=== PATIENT | female | born 1965 | race American Indian/Alaskan Native ===

== ENCOUNTER 2017-01-08 09:50 | Day surgery (SDC) | payer MEDICARE, MEDICAID ==
[2017-01-07 21:16] LABS: Hematocrit 15.3 % (30.3-42.9); Hemoglobin 4.8 gm/dl (10.1-14.3)
[2017-01-08] MEDS ORDERED: BENADRYL IV NR (10:18)
[2017-01-08] MEDS ORDERED: NACL 0.9% 250ML 250 ML IV ONE (10:18)
[2017-01-08] MEDS ORDERED: FLUSH HEPARIN IV ONE ×2 (10:28→15:05)
[2017-01-08 15:07] VITALS: BP 100/67
== END 2017-01-08 15:30 | disposition home or self-care (01) ==
LOC: OPU 09:50
DX: D64.9 Anemia, unspecified (principal)
CPT/HCPCS: 36415; 36430; 85014; 85018; 86850; 86900; 86901; 86920; 96374; J1642; P9016

== ENCOUNTER 2017-03-27 20:25 | Emergency (ER) | payer MEDICARE ==
[2017-03-27] MEDS ORDERED: D5NS 0.2% 1,000 ML IV SCH (22:00)
== END 2017-03-28 00:20 | disposition left against medical advice (07) ==
LOC: ED 20:25
DX: M79.605 Pain in left leg (principal); M79.604 Pain in right leg; Z53.21 Procedure and treatment not carried out due to patient leaving prior to being seen by health care provider

== ENCOUNTER 2017-03-28 11:24 | Emergency (ER) | payer MEDICARE ==
[2017-03-28 13:05] VITALS: BP 126/71
[2017-03-28] MEDS ORDERED: ULTRAM PO ONE (13:29)
--- NOTE | 2017-03-28 13:30 | Emergency Department Report ---
Entered by GUSTAVO SANTANA, acting as scribe for SHARIF ANDREW NP. Chief Complaint: Sickle Cell Crisis Stated Complaint: SICKLE CELL ANEMIA Time Seen by Provider: 03/28/17 13:11 - HPI History of Present Illness: Pt c/o sickle cell crisis. Notes a lot of PO fluid intake. PMHx of ESRD Positive myalgias. Positive for cough with yellow sputum + Nausea, fever, and chills Negative for vomiting and Negative for chest pain, dizziness, headache, and SOB Pt is currently on peritoneal dialysis. Last time was the 1 day ago. - ROS Review of Systems: All system are negative unless stated in HPI above. - Exam Vital Signs: Vital Signs 03/28/17 13:02 Temperature 98.1 F Pulse Rate 89 Blood Pressure 126/71 O2 Sat by Pulse 99 Oximetry Physical Exam: General: well nourished, well developed, 51 year old male in no acute distress and nontoxic in appearance Eyes: Sclera are pale bilateral Respiratory exam: normal lung sounds bilaterally. No respiratory distress. Congested cough present during exam Cardiovascular Exam: Regular rate, normal rhythm. No systolic murmur, diastolic murmur, rubs, or gallop Musculoskeletal: bilateral legs are not swollen MSE screening note: Focused history and physical exam performed. Due to findings the following was ordered: pt to main ed See above. ED Medical Decision Making - Medical Decision Making Patient screened by provider in triage area. Labs sent in for patient. Patient to be seen by MD on main ED side. ED Disposition for MSE Condition: Stable This documentation as recorded by the scribe,GUSTAVO SANTANA,accurately reflects the service I personally performed and the decisions made by me, SHARIF ANDREW NP.
--- NOTE | 2017-03-28 15:02 | XRay Report ---
CHEST 2 VIEWS INDICATION: Productive cough. COMPARISON: 02/12/2017 FINDINGS: PA and lateral chest radiographs demonstrate normal cardiomediastinal silhouette, right chest port tip about the cavoatrial junction and clear lungs. Bones again somewhat sclerotic diffusely. Left axillary stent partially imaged. Upper abdominal possible cholecystectomy clips. CONCLUSION: No acute disease in the chest, stable. Clinical correlation for underlying sickle cell or renal disease, amongst others, may also be obtained in an appropriate setting. Thank you for the opportunity to participate in this patient's care.
--- NOTE | 2017-04-01 01:21 | ED Elopement Review ---
ED Pt Elopement review - Call Back decision Pt Call Back Decision: Pt to F/U with PMD
== END 2017-03-28 13:50 | disposition left against medical advice (07) ==
LOC: ED 11:24
DX: D57.00 Hb-SS disease with crisis, unspecified (principal); M79.1 Myalgia; R11.0 Nausea; N18.6 End stage renal disease; Z53.21 Procedure and treatment not carried out due to patient leaving prior to being seen by health care provider
CPT/HCPCS: 71020